=== PATIENT | male | born 1955 | race Caucasian/White ===

== ENCOUNTER 2018-12-07 08:36 | Emergency (ER) | payer BC ==
[2018-12-07] MEDS ORDERED: Adacel (T-DAP) 0.5 ML SYRINGE ONE (09:23)
[2018-12-07] MEDS ORDERED: Lidocaine 1% PF 5 ML VIAL ONE (09:41)
[2018-12-07] MEDS ORDERED: Bacitracin Zinc 1 Packet ONE (11:21)
== END 2018-12-07 11:27 | disposition home or self-care (01) ==
LOC: ERS 08:36
DX: S61.411A Laceration without foreign body of right hand, initial encounter (principal); Z87.891 Personal history of nicotine dependence; W26.8XXA Contact with other sharp object(s), not elsewhere classified, initial encounter
CPT/HCPCS: 12002; 90471; 90715; J2001

== ENCOUNTER 2022-10-01 14:51 | Inpatient (IN) | payer MEDICARE, OTHER ==
[2022-10-01 16:24] LABS: #Basophils 0.1 thou/uL (0.0-0.2); #Eosinphils 0.3 thou/uL (0.0-0.7); #Lymphocytes 2.6 thou/uL (1.20-3.40); #Monocytes 0.9 thou/uL (0.11-0.59); #Neutrophils 5.2 thou/uL (1.40-6.50); %Basophils 0.6 % (0.0-1.0); %Eosinophils 3.2 % (0.0-10.0); %Lymphocytes 28.7 % (21.0-51.0); %Monocytes 9.7 % (0.0-10.0); %Neutrophils 57.8 % (42.0-75.0); Hemoglobin 14.5 g/dL (14.0-18.0); Mean Corpuscular HGB CONC 34.8 g/dL (32.0-36.0); Mean Corpuscular Hemoglobin 32.2 pg (27.0-31.0); Mean Corpuscular Volume 92.3 fl (78.0-98.0); Mean Platelet Volume 8.2 fL (7.4-10.4); Platelet Count 267 10x3/uL (130-400); RBC Distribution Width 11.8 % (11.5-14.5); White Blood Cell (WBC) Count 8.9 10x3/uL (4.8-10.8)
[2022-10-01 16:39] LABS: ALT (SGPT) 21 U/L (8-55); AST (SGOT) 16 U/L (5-34); Albumin 4.1 g/dL (3.4-4.8); Alkaline Phosphatase 75 U/L (40-110); Anion Gap 15 mmol/L (10-20); BUN (Urea Nitrogen) 19 mg/dL (8.4-25.7); Bilirubin, Total 0.7 mg/dL (0.2-1.2); Calc. Creatinine Clearance 0 mL/min (70-130); Calcium 9.5 mg/dL (7.8-10.44); Carbon Dioxide 24 mmol/L (23-31); Chloride 105 mmol/L (98-107); Estimated GFR 55; Globulin 2.7 g/dL (2.4-3.5); Glucose 124 mg/dL (80-115); Potassium 3.7 mmol/L (3.5-5.1); Protein, Total 6.8 g/dL (5.8-8.1); Sodium 140 mmol/L (136-145)
[2022-10-01] MEDS ORDERED: Aspirin Chewable 81 MG TAB ONE (20:49)
[2022-10-01] MEDS ORDERED: Dextrose 5% in Water 1,000 ML IV PRN (22:40)
[2022-10-01] MEDS ORDERED: HumaLOG 300 UNITS/3 ML VIAL SC PRN (22:40)
[2022-10-01] MEDS ORDERED: Dextrose 50% Abboject 50 ML SYRINGE SLOW IVP PRN (22:40)
[2022-10-01 23:45] LABS: SARS-CoV-2 NAA Rapid Test Not Detected (NotDetected)
[2022-10-02 08:26] LABS: Cardiac Risk 4.3 (Less than 4.5)
[2022-10-02] MEDS: Sodium Chloride 0.9% 1,000 ML IV SCH (09:00)
[2022-10-02] MEDS ORDERED: Enoxaparin Sodium 30 MG/0.3 ML SYRINGE ONE (09:08)
[2022-10-02] MEDS ORDERED: Aspirin Chewable 81 MG TAB ONE (09:08)
[2022-10-02] MEDS: Aspirin 81 mg Enteric Coated Tablet PO SCH (09:24)
[2022-10-02] MEDS: Enoxaparin Sodium 30 MG/0.3 ML SYRINGE SC SCH (09:27)
[2022-10-02 15:48] VITALS: BMI 32.3
[2022-10-02] MEDS ORDERED: Atorvastatin Calcium 40 MG TAB PO SCH ×2 (21:00)
[2022-10-03] MEDS: Sodium Chloride 0.9% 1,000 ML IV SCH ×2 (00:48→08:56)
[2022-10-03 08:27] LABS: Hemoglobin A1c 6.4 % (4.0-6.0)
[2022-10-03 08:28] LABS: Anion Gap 12 mmol/L (10-20); BUN (Urea Nitrogen) 17 mg/dL (8.4-25.7); Calc. Creatinine Clearance 86 mL/min (70-130); Calcium 8.5 mg/dL (7.8-10.44); Carbon Dioxide 25 mmol/L (23-31); Chloride 108 mmol/L (98-107); Estimated GFR 65; Glucose 141 mg/dL (80-115); Potassium 3.7 mmol/L (3.5-5.1); Sodium 141 mmol/L (136-145)
[2022-10-03] MEDS: Enoxaparin Sodium 30 MG/0.3 ML SYRINGE SC SCH (08:57)
[2022-10-03] MEDS: Aspirin 81 mg Enteric Coated Tablet PO SCH (08:57)
[2022-10-03] MEDS ORDERED: Ondansetron PF 4 MG/2 ML Vial IVP PRN (10:23)
[2022-10-03 11:07] VITALS: BP 142/93; TEMP 96.8
[2022-10-03] MEDS ORDERED: metFORMIN 500 MG TAB PO SCH (17:00)
[2022-10-03] MEDS ORDERED: Glimepiride 1 MG TAB PO SCH (17:00)
[2022-10-03] MEDS ORDERED: Carvedilol 3.125 MG TAB PO SCH (17:00)
[2022-10-04] MEDS ORDERED: Losartan 25 MG TAB PO SCH (09:00)
[2022-10-04] MEDS ORDERED: Amlodipine 5 MG TAB PO SCH (09:00)
== END 2022-10-03 15:40 | disposition home or self-care (01) | DRG 123 ==
LOC: ERS 14:51 → ERHOLD 20:19 → NEURO 10-02 14:53 → OBSVTOIN 10-03 11:24
PROVIDERS: ADMIT Internal Medicine; ATTEND Internal Medicine
DX: H49.21 Sixth [abducent] nerve palsy, right eye (principal); N17.9 Acute kidney failure, unspecified; H53.2 Diplopia; Z20.822 Contact with and (suspected) exposure to COVID-19; I25.10 Atherosclerotic heart disease of native coronary artery without angina pectoris; E78.00 Pure hypercholesterolemia, unspecified; I05.2 Rheumatic mitral stenosis with insufficiency; E11.42 Type 2 diabetes mellitus with diabetic polyneuropathy; I10 Essential (primary) hypertension; E66.9 Obesity, unspecified; E78.5 Hyperlipidemia, unspecified; Z95.1 Presence of aortocoronary bypass graft; Z68.32 Body mass index [BMI] 32.0-32.9, adult; Z86.73 Personal history of transient ischemic attack (TIA), and cerebral infarction without residual deficits; Z79.899 Other long term (current) drug therapy; Z79.82 Long term (current) use of aspirin; Z79.84 Long term (current) use of oral hypoglycemic drugs
CPT/HCPCS: 36415; 36416; 70450; 70544; 70551; 71045; 80048; 80053; 80061; 83036; 84484; 85025; 93005; 93306; 93880; 94760; 96372; 96374; G0378; J1650; J2405; J7050; U0002